=== PATIENT | female | born 1935 | race Caucasian/White ===

== ENCOUNTER 2022-12-10 12:36 | Outpatient (CLI) | payer MEDICARE, MEDICAID ==
[~2022-12-10 12:36] MED LIST: barium sulfate 450ml oral suspension ONE; diatr meglu/diatrizoate 30ml oral sol.-(3 dose) bottle ONE
== END 2022-12-10 23:59 | disposition home or self-care (01) ==
LOC: RAD 12:36
PROVIDERS: ATTEND Family Medicine
DX: R13.12 Dysphagia, oropharyngeal phase (principal)
CPT/HCPCS: 74230; Q9963